=== PATIENT | male | born 1945 | race Caucasian/White ===

== ENCOUNTER → 2021-05-11 | Outpatient (CLI) | payer MEDICARE ==
[2021-05-11 10:57] LABS: ALBUMIN 3.7 g/dL (3.4-5.0); CALCIUM 8.4 mg/dL (8.5-10.1); CREATININE 0.9 mg/dL (0.7-1.3); DIRECT BILIRUBIN 0.2 mg/dL (0.0-0.2); GFR 82.3; POTASSIUM 4.3 mmol/L (3.5-5.1); TOTAL BILIRUBIN 1.2 mg/dL (0.2-1.0); TOTAL PROTEIN 7.2 g/dL (6.4-8.2)
[2021-05-11 11:02] LABS: CHOLESTEROL/HDL RATIO 2.6
--- NOTE | 2021-05-11 14:23 | CARD ---
MR#: [id number] Date of Study: 05/11/2021 Ordering Physician: MELISSA RODGERS, Referring Physician: MELISSA RODGERS, Tech: Araseli Gonzalez, [facility] APPROVED REPORT EXAM: Two-dimensional and M-mode echocardiogram with Doppler and color Doppler. Other Information Quality : AverageHR: 66bpm INDICATION Cardiac Disease: CAD Surgery/Intervention CABG: Date: 2008 Site: [facility] RISK FACTORS Hypertension Hyperlipidemia 2D DIMENSIONS RVDd3.9 (2.9-3.5cm)Left Atrium(2D)3.4 (1.6-4.0cm) IVSd0.9 (0.7-1.1cm)Aortic Root(2D)2.9 (2.0-3.7cm) LVDd5.0 (3.9-5.9cm)LVOT Diameter2.0 (1.8-2.4cm) PWd1.0 (0.7-1.1cm)LVDs4.3 (2.5-4.0cm) FS (%) 14.4 %SV35.7 ml LVEF(%)30.5 (>50%) Aortic Valve AoV Peak Nhan.161.9cm/sAoV VTI30.9cm AO Peak GR.10.5mmHgLVOT Peak Nhan.124.8cm/s LVOT VTI 23.24cmAO Mean GR.5mmHg MARY ANN (VMAX)1.92vl9AUF (VTI)2.43cm2 AI P 1/2 Nmqo478sl Mitral Valve MV E Ywgzhksb50.2cm/sMV DECEL SOIM527nb MV A Ufjvssit09.9cm/sMV E Mean Gr.1mmHg MV FLP66tsH/A Ratio0.9 MVA (PHT)4.21cm2 TDI E/Lateral E'6.8E/Medial E'8.9 Pulmonary Valve PV Peak Ctctdpwk324.2cm/sPV Peak Grad.4mmHg Tricuspid Valve TR P. Oararkls200zb/sRAP QGBBDMPL5ruEg TR Peak Gr.25gcQlUIXA67jnCx Pulmonary Vein S1 Jvggvqhg54.1cm/sD2 Iukrcnwx02.9cm/s PVa owagtylv14lgzw LEFT VENTRICLE The left ventricle is normal size. There is normal left ventricular wall thickness. The left ventricu lar systolic function is normal and the ejection fraction is within normal range. The Ejection Fracti on is 55-60%. There is normal LV segmental wall motion. Tissue Doppler imaging reveals mild left vent ricular diastolic dysfunction. RIGHT VENTRICLE The right ventricle is normal size. There is normal right ventricular wall thickness. The right ventr icular systolic function is normal. ATRIA The left atrium size is normal. The right atrium size is normal. The interatrial septum is intact wit h no evidence for an atrial septal defect or patent foramen ovale as noted on 2-D or Doppler imaging. AORTIC VALVE The aortic valve is calcified and thickened but opens well. Doppler and Color Flow revealed mild aort ic regurgitation. There is no significant aortic valvular stenosis. Calculated aortic valve area is 2 .92 cm2 with maximum pressure gradient of 12 mmHg and mean pressure gradient of 6 mmHg. MITRAL VALVE The mitral valve is normal in structure and function. There is no evidence of mitral valve prolapse. There is no mitral valve stenosis. Doppler and Color-flow revealed trace mitral regurgitation. TRICUSPID VALVE The tricuspid valve is normal in structure and function. Doppler and Color Flow revealed trace tricus pid regurgitation with an estimated PAP of 32 mmHg. There is no tricuspid valve stenosis. PULMONIC VALVE Doppler and Color Flow revealed trace pulmonic valvular regurgitation. There is no pulmonic valvular stenosis. GREAT VESSELS The aortic root is normal in size. The ascending aorta is normal in size. The IVC is normal in size a nd collapses >50% with inspiration. PERICARDIAL EFFUSION There is no evidence of significant pericardial effusion. Critical Notification Critical Value: No <Conclusion> The left ventricular systolic function is normal and the ejection fraction is within normal range. Th e Ejection Fraction is 55-60%. There is normal LV segmental wall motion. Doppler and Color Flow revealed mild aortic regurgitation. Signed by : Jan Blackburn, Electronically Approved : 05/11/2021 14:22:07
== END ==
LOC: ECHO 10:09
PROVIDERS: ATTEND Internal Medicine Cardiovascular Disease
DX: I35.1 Nonrheumatic aortic (valve) insufficiency (principal); I11.9 Hypertensive heart disease without heart failure; I25.10 Atherosclerotic heart disease of native coronary artery without angina pectoris; Z95.1 Presence of aortocoronary bypass graft
CPT/HCPCS: 36415; 80048; 80061; 80076; 93306